=== PATIENT | female | born 2000 | race Caucasian/White ===

== ENCOUNTER 2022-04-13 18:23 | Emergency (ER) | payer OTHER ==
[2022-04-13] MEDS ORDERED: CYCLOBENZAPRINE10 MG PO (20:54)
[2022-04-13] MEDS ORDERED: IBUPROFEN800 MG PO (20:54)
== END 2022-04-13 21:25 | disposition home or self-care (01) ==
LOC: ER1 18:23
DX: S16.1XXA Strain of muscle, fascia and tendon at neck level, initial encounter (principal); V43.52XA Car driver injured in collision with other type car in traffic accident, initial encounter; Y92.410 Unspecified street and highway as the place of occurrence of the external cause
CPT/HCPCS: 70450; 72125; 99284